=== PATIENT | male | born 1960 | race African-American/Black ===

== ENCOUNTER 2016-10-17 13:28 | Emergency (ER) ==
[2016-10-17] MEDS ORDERED: XYLOCAINE 1% INJ ONE ×2 (13:36→14:27)
[2016-10-17] MEDS ORDERED: DIPHTHERIA/TETANUS ADULT IM ONE (13:36)
[2016-10-17] MEDS ORDERED: ZOFRAN ODT PO ONE (13:36)
[2016-10-17] MEDS ORDERED: NORCO-7.5 PO ONE (13:36)
[2016-10-17] MEDS ORDERED: XYLOCAINE-MPF 1% 10 ML ONE (13:41)
--- NOTE | 2016-10-17 13:44 | PROVIDER DOCUMENTATION ---
HPI-Rash/Wound/ReCheck - General Source: patient - History of Present Illness-Dermatology Location: reports: hands (L) Quality: reports: painful Severity: reports: moderate Onset/Duration: reports: just prior to arrival Timing: reports: still present Context/Associated Symptoms: reports: laceration (L 2nd and 4th digit) Identifiable cause?: Yes (slammed in car door ) Similar Symptoms Previously?: No Recently seen or treated by another doctor?: No <Mindy Oviedo - Last Filed: 10/17/16 14:58> <Vijay Arriaga - Last Filed: 10/17/16 15:19> - General Chief Complaint: Extremity Injury Stated Complaint: HAND LACERATION Time Seen by Provider: 10/17/16 13:36 Allergies/Adverse Reactions: Allergies Allergy/AdvReac Type Severity Reaction Status Date / Time sulfamethoxazole Allergy Mild SWELLING Verified 07/30/16 00:20 [From Bactrim] trimethoprim [From Bactrim] Allergy Mild SWELLING Verified 07/30/16 00:20 Home Medications: Home Medication List Medication Instructions Recorded Confirmed Last Taken Type Gabapentin 300 mg PO TID 09/13/15 01/04/16 07/29/16 History Amlodipine Besylate [Norvasc] 10 mg PO DAILY #30 tablet 01/04/16 Unknown Rx Metformin HCl 1,000 mg PO BID #120 tablet 01/04/16 07/29/16 Rx Albuterol Sulfate [Albuterol 8.5 gm IH Q4-6H PRN PRN #1 04/21/16 Unknown Rx Sulfate Hfa] hfa.aer.ad Furosemide [Lasix] 40 mg PO DAILY #90 tablet 04/21/16 2 Days Ago Rx Amlodipine Besylate [Norvasc] 10 mg PO DAILY #30 tablet 07/30/16 Unknown Rx Doxycycline 100 mg PO BID #14 capsule 07/30/16 Unknown Rx Cephalexin [Keflex] 500 mg PO Q6HR #28 capsule 10/17/16 Unknown Rx Hydrocodone/APAP 7.5 mg/325 mg 1 each PO Q6H PRN PRN #12 tablet 10/17/16 Unknown Rx [[place]-7.5] Ondansetron Odt [Zofran 4 mg Odt] 4 mg PO Q6H PRN PRN #20 tablet 10/17/16 Unknown Rx - History of Present Illness-Dermatology Nature of Presenting Problem: Pt is 55 y/o M presents to the ED with lacerations to L 2nd and 4th digit. Pt states slammed hand in car door. Pt denies LOC and any other injuries. (Mindy Oviedo) Review of Systems - Adult - REVIEW OF SYSTEMS - ADULT Constitutional: denies: chills, fever Eyes: denies: blurred vision, double vision Ears, Nose, Mouth & Throat: denies: ear pain, nose pain, throat pain Cardiovascular: reports: irregular heart rate (tachy). denies: chest pain, heart murmur Respiratory: denies: cough, shortness of breath, wheezing Gastrointestinal: denies: abdominal pain, diarrhea, nausea, vomiting Genitourinary: denies: dysuria, hematuria Musculoskeletal: reports: other (L digit pain). denies: bone pain, joint pain, neck pain Integumentary: denies: hives, itching Neurological: denies: dizziness/vertigo, headache/migraines Psychiatric: reports: no symptoms reported Endocrine: reports: no symptoms reported Hematologic/Lymphatic: reports: no symptoms reported Allergic/Immunologic: reports: no symptoms reported All Other Systems: Reviewed and Negative <Mindy Oviedo - Last Filed: 10/17/16 14:58> Past History - Adult - PAST MEDICAL HISTORY-ADULT Review of Records: reports: Nursing Assessment Review, Medications Reviewed, Social history reviewed & non-contributory. Major Childhood Illnesses: reports: denies history Cardiovascular: reports: HTN Respiratory: reports: denies history Gastrointestinal: reports: denies history Obstetrical/Gynecological: reports: denies history Genitourinary: reports: denies history Musculoskeletal: reports: other (diabetic neuropathy in feet and arms) Neurological: reports: denies history Endocrine/Immune: reports: Diabetes Diabetes Type: Type 2 Other Conditions: reports: denies history - PRIOR SURGERIES/PROCEDURES Surgical/Procedure History: reports: none - PRIOR HOSPITALIZATIONS Prior Hospitalizations: reports: none - IMMUNIZATION STATUS Childhood Immunizations: See Nurse Assessment Flu Vaccine: See Nurse Assessment - FAMILY HISTORY Family History: diabetes, HTN - SOCIAL HISTORY Smoking: cigarettes, less than 1 pack/day Provider spent 3-5 mins advising pt. on dangers of tobacco.: Discussed manners to quit use, and f/u contacts for add'l counseling. Substance Use: denies Living Situation: family <Mindy Oviedo - Last Filed: 10/17/16 14:58> Physical Exam-General - PHYSICAL EXAM-ADULT Initial Vital Signs Reviewed: Yes - CONSTITUTIONAL General Appearance: appears well, alert, mild distress - EYES Eyes: PERRL/EOMI, pink conjunctivae, fundi clear, no AV nicking - HEAD, EARS, NOSE, MOUTH & THROAT HENMT: normocephalic/atraumatic, moist mucous membranes, normal ENT inspection, TMs normal, pharynx normal - NECK Neck: non-tender, full range of motion, supple, normal inspection - RESPIRATORY Respiratory: chest non-tender, lungs clear, normal breath sounds, no pleuratic chest pain, no respiratory distress, no accessory muscle use - CARDIOVASCULAR Cardiovascular: normal peripheral pulses, no edema, no gallop, no JVD, no murmur , tachycardia - GASTROINTESTINAL (ABDOMEN) Abdominal Exam: normal bowel sounds, non tender, soft, no organomegaly, no pulsatile mass - LYMPHATIC Lymphatic: no adenopathy - MUSCULOSKELETAL Back Exam: normal inspection, no CVA tenderness, no vertebral tenderness Extremity: normal range of motion, normal gait, no pedal edema, no calf tenderness, tenderness (L 2nd and 4th digit) - SKIN Integumentary: normal color, normal turgor, warm/dry, laceration(s) (L 2nd and 4th digit) - NEUROLOGIC Neurologic: grossly normal - PSYCHIATRIC Psych/Mental Status: normal mood/affect, oriented x 3 <Mindy Oviedo - Last Filed: 10/17/16 14:58> Progress - XRAY 1 XRAY: Left XRAY Study: Hand Impression: Abnormal XRAY Interpretation: communited fracture 4th finger <Gorge Oviedoi - Last Filed: 10/17/16 14:58> - CONSULTS/PCP/HOSPITALIST Notification #1 *Consult/PCP/Hospitalist*: Dr. Burton's Office Time Discussed: 15:18 Consult Disposition: F/U in office (Will work in to clinic today) <Vijay Arriaga - Last Filed: 10/17/16 15:19> - PLAN OF CARE/RESULTS Progress/Plan/Lab Results: Orders Category Date Time Status Finger Splint DIRECTED Care 10/17/16 15:12 Active Suture Tray Set-Up DIRECTED Care 10/17/16 13:36 Active HAND COMPLETE LEFT [RAD] Stat Exams 10/17/16 13:36 Completed CefAZOLIN [Kefzol] Med 10/17/16 14:05 Discontinued 1 gm IM NOW ONE Diphtheria/Tetanus Adult Med 10/17/16 13:36 Discontinued 0.5 ml IM .ONCE ONE Hydrocodone/APAP 7.5 mg/325 mg [[place]-7.5] Med 10/17/16 13:36 Discontinued 1 each PO NOW ONE Lidocaine 1% Pf [Xylocaine-Mpf 1%] 5 ml Med 10/17/16 13:41 Discontinued .ROUTE As Directed Lidocaine 1% [Xylocaine 1%] Med 10/17/16 13:36 Discontinued 20 ml INJ NOW ONE Lidocaine 1% [Xylocaine 1%] Med 10/17/16 14:27 Discontinued 20 ml INJ NOW ONE Ondansetron Odt [Zofran Odt] Med 10/17/16 13:36 Discontinued 4 mg PO NOW ONE Vital Signs Temp Pulse Resp BP Pulse Ox 10/17/16 13:33 98 F 120 H 20 212/128 100 sulfamethoxazole [From Bactrim] Allergy (Mild, Verified 07/30/16 00:20) SWELLING trimethoprim [From Bactrim] Allergy (Mild, Verified 07/30/16 00:20) SWELLING Gabapentin 300 mg PO TID 09/13/15 Amlodipine Besylate [Norvasc] 10 mg PO DAILY #30 tablet 01/04/16 Metformin HCl 1,000 mg PO BID #120 tablet 01/04/16 Albuterol Sulfate [Albuterol Sulfate Hfa] 8.5 gm IH Q4-6H PRN PRN #1 hfa.aer.ad 04/21/16 Furosemide [Lasix] 40 mg PO DAILY #90 tablet 04/21/16 Amlodipine Besylate [Norvasc] 10 mg PO DAILY #30 tablet 07/30/16 Doxycycline 100 mg PO BID #14 capsule 07/30/16 (Vijay Arriaga) Procedures - LACERATION/WOUND REPAIR/FB Left Hand Wound Location: Other: L 2nd digit Wound Length: 1.5 cm Wound's Depth, Shape: superficial Wound Explored/Foreign Body: clean Irrigated with Saline?: No Prepped with: Betadine Anesthetic: 1%, Lidocaine/Xylocaine Volume of Anesthetic (ml's): 5 Wound Repaired with: Sutures Suture Size/Type: 4.0, Nylon Number of Sutures: 6 Layer Closure?: No Sterile Dressing Applied?: Yes Splint Applied?: No Sling Applied?: No Left See Other Wound Location: Other: L 4th digit Wound Length: 2 cm Wound's Depth, Shape: flap Wound Explored/Foreign Body: clean Irrigated with Saline?: No Prepped with: Betadine Anesthetic: 1%, Lidocaine/Xylocaine Volume of Anesthetic (ml's): 5 Wound Debrided: minimal Wound Repaired with: Sutures Suture Size/Type: 4.0, Nylon Number of Sutures: 9 Layer Closure?: Yes Deep Layer Suture Size/Type: 4.0, Chromic Number Deep Layer Sutures: 2 Sterile Dressing Applied?: Yes Splint Applied?: No Sling Applied?: No <Mindy Oviedo - Last Filed: 10/17/16 14:58> Departure <Mindy Oviedo - Last Filed: 10/17/16 14:58> - Departure Time of Disposition Order: 15:12 Certified Medical Emergency: Emergent <Vijay Arriaga - Last Filed: 10/17/16 15:19> - Departure DIAGNOSIS: Open finger fracture Qualifiers: Encounter type: initial encounter Finger: ring finger Phalanx: middle Fracture alignment: nondisplaced Laterality: left Qualified Code(s): S62.655B - Nondisplaced fracture of medial phalanx of left ring finger, initial encounter for open fracture Disposition: HOME 01 Condition: Good Additional Instructions: Take medication as prescribed. Go to Dr. Burton's office right now. ED Follow Up Instructions: You have been treated by a care provider in the Emergency Department. These instructions are being provided to you so you can have an understanding of how to care for yourself upon discharge. Upon discharge from the Emergency Department, you are responsible for making arrangements for follow-up care by a physician of your choice. Take all prescribed medications as directed. Return to the Emergency Department immediately for any new or worsening symptoms. You may call the Physician Referral phone number at [phone] to obtain a list of Physicians who are taking new patients. Prescriptions: Cephalexin [Keflex] 500 mg PO Q6HR #28 capsule Hydrocodone/APAP 7.5 mg/325 mg [[place]-7.5] 1 each PO Q6H PRN PRN #12 tablet PRN Reason: Pain Ondansetron Odt [Zofran 4 mg Odt] 4 mg PO Q6H PRN PRN #20 tablet PRN Reason: Nausea Referrals: None,PCP [Primary Care Provider] - Nelson Burton MD [STAFF PHYSICIAN] - Attestation - Scribe Verification/Attestation Scribe:: Mindy vOiedo Acting as Scribe for:: Vijay Arriaga Scribe documention review:: This chart was documented by a scribe and accurately reflects the service the provider performed and the decisions made by the provider. <Mindy Oviedo - Last Filed: 10/17/16 14:58> - Physician/ FINN Attestation Patient care was provided by Advanced Practice Provider:: Yes Advanced Practice Provider:: Vijay Arriaga Advanced Practice Provider documentation review:: The Mid-level provider documentation, treatment plan and medical decision making was reviewed by the physician who agrees with all treatment and medical decision making by the [facility]. <Vijay Arriaga - Last Filed: 10/17/16 15:19> Physician Attestation
[2016-10-17] MEDS ORDERED: KEFZOL IM ONE (14:05)
--- NOTE | 2016-10-17 14:23 | Diag Imaging Result Document ---
PROCEDURE NAME: HAND COMPLETE LEFT - 10/17/2016 LEFT HAND, THREE VIEWS: FINDINGS: There is a comminuted fracture to the middle phalanx of the fourth finger. There are several millimeters of displacement and angulation at the fracture site. 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 No other fracture or dislocation. IMPRESSION: Fracture to the mid fourth finger.
[2016-10-17 15:59] VITALS: BP 171/89
== END 2016-10-17 15:59 | disposition home or self-care (01) ==
LOC: P.ED 13:28
DX: S62.655B Nondisplaced fracture of middle phalanx of left ring finger, initial encounter for open fracture (principal); M79.642 Pain in left hand; S61.211A Laceration without foreign body of left index finger without damage to nail, initial encounter; M79.645 Pain in left finger(s); I10 Essential (primary) hypertension; E11.9 Type 2 diabetes mellitus without complications; F17.210 Nicotine dependence, cigarettes, uncomplicated; Z79.899 Other long term (current) drug therapy; Z23 Encounter for immunization; Z71.6 Tobacco abuse counseling; Z83.3 Family history of diabetes mellitus; Z82.49 Family history of ischemic heart disease and other diseases of the circulatory system; W23.0XXA Caught, crushed, jammed, or pinched between moving objects, initial encounter
CPT/HCPCS: 90714; J0690

== ENCOUNTER 2018-11-21 17:32 | Inpatient (IN) ==
--- NOTE | 2018-11-21 18:06 | Diag Imaging Result Doc PS360 ---
EXAM: CHEST-1 VIEW INDICATION: chest pain TECHNIQUE: One view COMPARISON: 11/09/2018 FINDINGS: There is vague increased opacity at the right lung base suggesting a mild infiltrate. The left lung is clear. This is more prominent than the most recent prior study but is similar to a prior study dated 10/27/2018 There is no discrete pleural fluid collection or pneumothorax. The cardiomediastinal silhouette and central vasculature are grossly unremarkable. IMPRESSION: Vague right basilar infiltrate as described. Electronically signed by Donny Gonzales 11/21/2018 6:04 PM
[2018-11-21 18:18] LABS: BE 6.5 mmoll (-3.0-3.0); BLOOD TYPE ARTERIAL; HCO3-(ACT) 29.9 mmoll (20.0-26.0); O2(CT) 13.9 mL/dL (15.0-23.0); O2HB 90.8 % (95.0-99.0); PCO2(98.6) 45 mmHg (35-45); PO2(98.6) 58 mmHg (60-100); SAMPLE BLOOD; SAO2 94.2 % (95.0-100.0); THB 10.9 g/dL (11.5-17.4); pH(98.6) 7.45 (7.35-7.45)
[2018-11-21 18:20] LABS: ALLEN TEST NO; MODALITY ROOM AIR
[2018-11-21 18:31] LABS: BASO# 0.03 X1000 (0.0-0.2); BASO% 0.5 % (0.0-0.8); EOS# 0.22 X1000 (0.0-0.7); EOS% 3.9 % (0.0-10.0); HEMATOCRIT 32.6 % (42.0-52.0); HEMOGLOBIN 10.8 g/dL (14.0-18.0); IMM GRAN# 0.01 X1000 (0.0-0.04); IMM GRAN% 0.2 % (0.0-0.5); LYMPH# 1.59 X1000 (1.2-3.4); LYMPH% 28.3 % (20.5-51.1); MCH 27.8 PG (27-31); MCHC 33.1 g/dL (33-37); MONO# 0.64 X1000 (0.11-0.59); MONO% 11.4 % (1.7-9.3); MPV 11.5 FL (7.4-10.4); NEUT# 3.12 X1000 (1.4-6.5); NEUT% 55.7 % (42.2-75.2); PLT 311 X1000 (130-400); RBC 3.88 XMIL (4.7-6.1); RDW 13.4 % (11.5-14.5); WBC 5.61 X1000 (4.8-10.8)
[2018-11-21 18:44] LABS: PROTIME 13.7 Seconds (11.0-16.0)
[2018-11-21 18:45] LABS: PTT 29.5 Seconds (22.3-41.8)
[2018-11-21 19:12] LABS: ESTIMATED GFR > 60
[2018-11-21 19:18] LABS: AGAP 12; ALBUMIN 3.2 g/dL (3.5-5.0); ALKALINE PHOSPHATASE 157 U/L (32-122); BUN 10 mg/dL (8-22); CALCIUM 8.2 mg/dL (8.8-10.2); CHLORIDE 98 mmol/L (98-107); COSMO 292; CREATININE 1.1 mg/dL (0.7-1.2); GOT 13 U/L (10-34); GPT 32 U/L (10-44); POTASSIUM 4.3 mmol/L (3.5-5.1); SODIUM 138 mmol/L (136-145); TCO2 28 mmol/L (25-35); TOTAL PROTEIN 6.5 g/dL (6.3-8.3)
[2018-11-21 19:20] LABS: GLUCOSE 405 mg/dL (70-104)
--- NOTE | 2018-11-21 19:25 | PROVIDER DOCUMENTATION ---
This chart was entered by Lilia Mazariegos Scribe, acting as scribe for Parviz Acosta MD. HPI-Respiratory General - General Source: patient - History of Present Illness-Resp Severity in ED: reports: moderate Onset/Duration: reports: other (2weeks) Timing: reports: getting worse Context: reports: other (cardiac stent placement 2 weeks ago) Cough Quality/Degree: reports: mild, dry cough Episode Frequency: rare episodes Current Respiratory Medication Therapy: Initiated none Modifying Factors: improves with: exertion (worsens), lying down (worsens) Associated Symptoms: reports: cough, shortness of breath, wheezing. denies: fever/chills Similar Symptoms Previously?: Yes Recently seen or treated by another doctor?: Yes <Parviz Acosta - Last Filed: 11/21/18 19:25> <Jason Alvarez - Last Filed: 11/21/18 20:44> - General Chief Complaint: Shortness of Breath Stated Complaint: TROUBLE BREATHING Time Seen by Provider: 11/21/18 17:42 Allergies/Adverse Reactions: Patient Allergies Allergy/AdvReac Type Severity Reaction Status Date / Time sulfamethoxazole Allergy Mild SWELLING Verified 11/21/18 18:20 [From Bactrim] trimethoprim [From Bactrim] Allergy Mild SWELLING Verified 11/21/18 18:20 Home Medications: Home Medication List Medication Instructions Recorded Confirmed Last Taken Type Metformin [Glucophage] 1,000 mg PO BID 11/08/17 11/21/18 11/21/18 History Furosemide [Lasix] 20 mg PO DAILY #30 tab 11/09/17 11/21/18 11/21/18 Rx Gabapentin [Neurontin] 400 mg PO DAILY 12/13/17 11/21/18 11/21/18 History LISINOpril [Prinivil] 40 mg PO DAILY #90 tab 12/16/17 11/21/18 11/21/18 Rx - History of Present Illness-Resp Nature of Presenting Problem: pt is a 57 yr old male presenting with 2 week hx of worsening shortness of emily ath and lower extremity edema.pt reports stent placement 2 weeks ago. pt admits coughing denies fever/chills (Parviz Acosta) Review of Systems - Adult - REVIEW OF SYSTEMS - ADULT Constitutional: denies: chills, fever Eyes: reports: no symptoms reported Ears, Nose, Mouth & Throat: denies: ear pain, sinus problem, throat pain Cardiovascular: reports: edema. denies: chest pain, palpitations, syncope Respiratory: reports: cough, dyspnea on exertion, shortness of breath, wheezing Gastrointestinal: denies: abdominal pain, diarrhea, nausea, vomiting Genitourinary: reports: no symptoms reported Musculoskeletal: denies: back pain, muscle aches, neck pain Integumentary: reports: no symptoms reported Neurological: denies: dizziness/vertigo, headache/migraines Psychiatric: reports: no symptoms reported Endocrine: reports: no symptoms reported Hematologic/Lymphatic: reports: no symptoms reported Allergic/Immunologic: reports: no symptoms reported All Other Systems: Reviewed and Negative <Parviz Acosta - Last Filed: 11/21/18 19:25> Past History - Adult - PAST MEDICAL HISTORY-ADULT Review of Records: reports: Old Records Reviewed, Nursing Assessment Review, Medications Reviewed, Social history reviewed & non-contributory. Major Childhood Illnesses: reports: denies history Cardiovascular: reports: CAD, HTN Respiratory: reports: asthma Gastrointestinal: reports: denies history Obstetrical/Gynecological: reports: denies history Genitourinary: reports: denies history Musculoskeletal: reports: denies history, other (diabetic neuropathy in feet and arms) Neurological: reports: denies history Endocrine/Immune: reports: Diabetes Other Conditions: reports: denies history - PRIOR SURGERIES/PROCEDURES Surgical/Procedure History: reports: none - PRIOR HOSPITALIZATIONS Prior Hospitalizations: reports: none - IMMUNIZATION STATUS Childhood Immunizations: See Nurse Assessment Flu Vaccine: See Nurse Assessment - FAMILY HISTORY Family History: diabetes, HTN - SOCIAL HISTORY Smoking: quit less than 1 year Substance Use: denies Living Situation: family <Parviz Acosta - Last Filed: 11/21/18 19:25> Physical Exam-General - PHYSICAL EXAM-ADULT Initial Vital Signs Reviewed: Yes - CONSTITUTIONAL General Appearance: alert, no apparent distress - EYES Eyes: PERRL/EOMI - HEAD, EARS, NOSE, MOUTH & THROAT HENMT: normocephalic/atraumatic, moist mucous membranes, normal ENT inspection - NECK Neck: non-tender, full range of motion, supple, normal inspection - RESPIRATORY Respiratory: chest non-tender, lungs clear, normal breath sounds, no pleuratic chest pain, no respiratory distress, no accessory muscle use, increased rate - CARDIOVASCULAR Cardiovascular: normal peripheral pulses, regular rate, rhythm - GASTROINTESTINAL (ABDOMEN) Abdominal Exam: normal bowel sounds, non tender, soft - LYMPHATIC Lymphatic: no adenopathy - MUSCULOSKELETAL Back Exam: normal inspection, no CVA tenderness, no vertebral tenderness Extremity: normal range of motion, non-tender, normal gait, pedal edema (bilateral 3+pitting edema) - SKIN Integumentary: normal color, normal turgor, warm/dry - NEUROLOGIC Neurologic: grossly normal, no motor/sensory deficits - PSYCHIATRIC Psych/Mental Status: normal mood/affect <Parviz Acosta - Last Filed: 11/21/18 19:25> Progress - PLAN OF CARE/RESULTS Result Diagrams: 11/21/18 18:05 11/21/18 18:05 - EKG 1 Time of EKG reading by physician:: 17:42 EKG Read and Signed by:: Parviz Acosta EKG Interpretation (*Must complete 3 of following elements*): Abnormal (possible LAE, marked t wave abnormality consider anterolateral ischemia) Rate: 90 Rhythm: sinus with PACs [place]: normal QRS: other (pacs) AR Interval: normal - XRAY 1 XRAY Study: Chest Impression: Abnormal ( Signed EXAM: CHEST-1 VIEW INDICATION: chest p ain TECHNIQUE: One view COMPARISON: 11/09/2018 FINDINGS: There is vague increased opacity at the right lung base suggesting a mild infiltrate. The left lung is clear. This is more prominent than the most recent prior study but is similar to a prior study dated 10/27/2018 There is no discrete pleural fluid collection or pneumothorax. The cardiomediastinal silhouette and central vasculature are grossly unremarkable. IMPRESSION: Vague right basilar infiltrate as described. Electronically signed by Donny Gonzales 11/21/2018 6:04 PM 11/21/181803 Interpreting Physician: Donny Gonzales MD Dictated Date/Time: 11/21/181801) Comparison with other Films: changes noted (10/27/18) - CHANGE OF SHIFT REPORT (ED Provider) 1 Report Given and Care Transferred to:: Dr Alvarez Time of Transfer: 19:00 Items Pending: Labs, XRAY Results <Parviz Acosta - Last Filed: 11/21/18 19:25> - PLAN OF CARE/RESULTS Result Diagrams: 11/21/18 18:05 11/21/18 18:05 <Jason Alvarez - Last Filed: 11/21/18 20:44> - PLAN OF CARE/RESULTS Progress/Plan/Lab Results: Vital Signs - 8 hr 11/21/18 17:36 11/21/18 18:19 11/21/18 19:55 Temperature 98.5 F 98.6 F Pulse Rate 85 83 87 Respiratory Rate 26 H 24 18 Blood Pressure 163/99 167/122 163/106 O2 Sat by Pulse Oximetry 98 98 98 Laboratory Results - last 24 hr 11/21/18 11/21/18 11/21/18 18:00 18:05 18:05 WBC 5.61 RBC 3.88 L Hgb 10.8 L Hct 32.6 L MCV 84.0 MCH 27.8 MCHC 33.1 RDW Std Deviation 13.4 Plt Count 311 MPV 11.5 H Immature Gran % (Auto) 0.2 Neut % (Auto) 55.7 Lymph % (Auto) 28.3 Bertie % (Auto) 11.4 H Eos % (Auto) 3.9 Baso % (Auto) 0.5 Immature Gran # (Auto) 0.01 Neut # (Auto) 3.12 Lymph # (Auto) 1.59 Bertie # (Auto) 0.64 H Eos # (Auto) 0.22 Baso # (Auto) 0.03 PT INR PTT (Actin FS) Specimen Type ARTERIAL Sample Site L BRACHIAL pH 7.45 pCO2 45 pO2 58 L HCO3 29.9 H Base Excess 6.5 H Oxyhemoglobin 90.8 L ABG O2 Sat (Calculated) 13.9 L ABG O2 Saturation 94.2 L ABG Carboxyhemoglobin 2.50 ABG Methemoglobin 1.0 Jimmy Test NO A-a O2 Difference 35.0 Total Hemoglobin 10.9 L Lactate 1.30 Blood Gas Modality ROOM AIR FiO2 % 21.0 Sodium Potassium Chloride Carbon Dioxide Anion Gap BUN Creatinine Estimated GFR/1.73 m2 BUN/Creatinine Ratio Glucose Calculated Osmolality Calcium Total Bilirubin AST ALT Alkaline Phosphatase Troponin T 0.087 Sol-U-Eqxihecetjs Pept Total Protein Albumin Globulin Albumin/Globulin Ratio Urine Source Urine Color Urine Clarity Urine pH Ur Specific [place] Urine Protein Urine Ketones Urine Blood Urine Nitrite Urine Bilirubin Urine Urobilinogen Urine Microscopic RBC Urine WBC Urine Microscopic WBC Ur Epithelial Cells Urine Crystals Urine Bacteria Urine Casts Urine Yeast Urine Glucose 11/21/18 11/21/18 11/21/18 18:05 18:05 18:05 WBC RBC Hgb Hct MCV MCH MCHC RDW Std Deviation Plt Count MPV Immature Gran % (Auto) Neut % (Auto) Lymph % (Auto) Bertie % (Auto) Eos % (Auto) Baso % (Auto) Immature Gran # (Auto) Neut # (Auto) Lymph # (Auto) Bertie # (Auto) Eos # (Auto) Baso # (Auto) PT 13.7 INR 1.00 PTT (Actin FS) 29.5 Specimen Type Sample Site pH pCO2 pO2 HCO3 Base Excess Oxyhemoglobin ABG O2 Sat (Calculated) ABG O2 Saturation ABG Carboxyhemoglobin ABG Methemoglobin Jimmy Test A-a O2 Difference Total Hemoglobin Lactate Blood Gas Modality FiO2 % Sodium 138 Potassium 4.3 Chloride 98 Carbon Dioxide 28 Anion Gap 12 BUN 10 Creatinine 1.1 Estimated GFR/1.73 m2 > 60 BUN/Creatinine Ratio 9 Glucose 405 H* Calculated Osmolality 292 Calcium 8.2 L Total Bilirubin 0.20 AST 13 ALT 32 Alkaline Phosphatase 157 H Troponin T Gxh-N-Talealbsuvo Pept 4625 H Total Protein 6.5 Albumin 3.2 L Globulin 3.0 Albumin/Globulin Ratio 1.0 Urine Source Urine Color Urine Clarity Urine pH Ur Specific [place] Urine Protein Urine Ketones Urine Blood Urine Nitrite Urine Bilirubin Urine Urobilinogen Urine Microscopic RBC Urine WBC Urine Microscopic WBC Ur Epithelial Cells Urine Crystals Urine Bacteria Urine Casts Urine Yeast Urine Glucose 11/21/18 18:23 WBC RBC Hgb Hct MCV MCH MCHC RDW Std Deviation Plt Count MPV Immature Gran % (Auto) Neut % (Auto) Lymph % (Auto) Bertie % (Auto) Eos % (Auto) Baso % (Auto) Immature Gran # (Auto) Neut # (Auto) Lymph # (Auto) Bertie # (Auto) Eos # (Auto) Baso # (Auto) PT INR PTT (Actin FS) Specimen Type Sample Site pH pCO2 pO2 HCO3 Base Excess Oxyhemoglobin ABG O2 Sat (Calculated) ABG O2 Saturation ABG Carboxyhemoglobin ABG Methemoglobin Jimmy Test A-a O2 Difference Total Hemoglobin Lactate Blood Gas Modality FiO2 % Sodium Potassium Chloride Carbon Dioxide Anion Gap BUN Creatinine Estimated GFR/1.73 m2 BUN/Creatinine Ratio Glucose Calculated Osmolality Calcium Total Bilirubin AST ALT Alkaline Phosphatase Troponin T Nje-Y-Jytfhzfaefz Pept Total Protein Albumin Globulin Albumin/Globulin Ratio Urine Source CLEAN CATCH Urine Color YELLOW Urine Clarity CLEAR Urine pH 7.0 Ur Specific [place] 1.000 Urine Protein 1+(30 mg/dL) A Urine Ketones NEGATIVE Urine Blood NEGATIVE Urine Nitrite NEGATIVE Urine Bilirubin NEGATIVE Urine Urobilinogen NORMAL Urine Microscopic RBC <10 Urine WBC NEGATIVE Urine Microscopic WBC <10 Ur Epithelial Cells <10 Urine Crystals NONE SEEN Urine Bacteria NEGATIVE Urine Casts NONE SEEN Urine Yeast NONE SEEN Urine Glucose 3+(500 mg/dL) A Orders Category Date Time Status Admit - [facility] Routine AdmDCTranf 11/21/18 20:38 Active Activity - Up Ad Alva ORDERED Care 11/21/18 20:38 Active Call Admitting on Arrival AT ADMISSION Care 11/21/18 20:39 Active Nursing- Obtain EKG ONCE Care 11/21/18 17:43 Active Resuscitation Status Routine Care 11/21/18 20:38 Ordered Vital Signs Order ROUTINE Care 11/21/18 20:38 Active Z-Document. for Tele Applied ORDERED Care 11/21/18 20:39 Active Heart Healthy Diet Diet 11/21/18 20:40 Active CHEST-1 VIEW [RAD] Stat Exams 11/21/18 17:43 Completed ABG [RESP] Routine Lab 11/21/18 18:00 Completed CBC WITH ELECTRONIC DIFF [HEME] Stat Lab 11/21/18 18:05 Completed COMPREHENSIVE METABOLIC PANEL [CHEM] Stat Lab 11/21/18 18:05 Completed PRO B-NATRIURETIC PEPTIDE Stat Lab 11/21/18 18:05 Completed PROTIME WITH INR [COAG] Stat Lab 11/21/18 18:05 Completed PTT [COAG] Stat Lab 11/21/18 18:05 Completed TROPONIN T Q8HR Lab 11/21/18 21:00 Uncollected TROPONIN T Q8HR Lab 11/22/18 05:00 Uncollected TROPONIN T Q8HR Lab 11/22/18 13:00 Uncollected TROPONIN T Q8HR Lab 11/22/18 21:00 Uncollected TROPONIN T Stat Lab 11/21/18 18:05 Completed ua [URINALYSIS PL W/POSS RFLX CULT] [URINALYSIS] Stat Lab 11/21/18 18:23 Completed Acetaminophen [Tylenol] Med 11/21/18 20:38 Ordered 650 mg PO Q6H PRN PRN Furosemide [Lasix] Med 11/21/18 20:34 Discontinued 40 mg IV NOW ONE Insulin Human Regular [Humulin R] Med 11/21/18 20:34 Discontinued 10 unit SUBQ NOW ONE Levofloxacin 750 mg/D5w [Levaquin 750 mg/D5w] Med 11/21/18 20:34 Active 750 mg in 150 ml IV NOW Morphine Med 11/21/18 20:38 Ordered 2 mg IV Q2H PRN PRN Ondansetron [Zofran] Med 11/21/18 20:38 Ordered 4 mg IV Q4H PRN PRN Oxygen Device Routine Oth 11/21/18 20:39 Active Telemetry [OM.EQ] Routine Oth 11/21/18 20:38 Active ECHO COMPL W/Contrast Definity Routine Ther 11/22/18 06:00 Ordered EKG [EKG] Stat Ther 11/21/18 17:43 Ordered Transfer/Admit Order [TRANSFER] Routine Transfer 11/21/18 20:41 Ordered Departure <Parviz Acosta - Last Filed: 11/21/18 19:25> - Departure Date of Disposition Decision: 11/21/18 Time of Disposition Decision: 20:43 Certified Medical Emergency: Emergent - Critical Care Note This patient required my direct & personal management of CC.: No <Jason Alvarez - Last Filed: 11/21/18 20:44> - Departure DIAGNOSIS: Pneumonia Qualifiers: Pneumonia type: due to unspecified organism Laterality: unspecified laterality Lung location: unspecified part of lung Qualified Code(s): J18.9 - Pneumonia, unspecified organism CHF (congestive heart failure) Qualifiers: Heart failure type: other Qualified Code(s): I50.9 - Heart failure, unspecified Disposition: ADMITTED INPATIENT 09 Condition: Stable Referrals and Follow-Ups: None,PCP [Primary Care Provider] - Attestation - Physician/ FINN Attestation Patient care was provided by Advanced Practice Provider:: No The physician spent face to face time with patient:: Yes Advanced Practice Provider documentation review:: Supervising physician onsite and consulted in the evaluation and care of this patient. The physician did have a face to face encounter with the patient. <Jason Alvarez - Last Filed: 11/21/18 20:44> This chart was documented by the indicated scribe, (Lilia Mazariegos, Christy) and accurately reflects the services I performed and decisions made by me, Parviz Acosta MD, as attested by the provider's signature.
[2018-11-21 20:11] LABS: BILIRUBIN URINE NEGATIVE (NEGATIVE); BLOOD URINE NEGATIVE (NEGATIVE); CLARITY CLEAR (CLEAR); COLOR YELLOW; KETONE URINE NEGATIVE (NEGATIVE); LEUKOCYTES URINE NEGATIVE (NEGATIVE); NITRITE URINE NEGATIVE (NEGATIVE); PROTEIN URINE 1+(30 mg/dL) mg/dL (NEGATIVE); UROBILINOGEN URINE NORMAL
[2018-11-21 20:13] LABS: URINE SOURCE CLEAN CATCH
[2018-11-21 20:14] LABS: URINE BACTERIA NEGATIVE /HFP; URINE EPITHELIAL CELLS <10 /HPF (<10); URINE RBC <10 /HPF (<10); URINE WBC <10 /HPF (<10); URINE YEAST NONE SEEN /HPF
[2018-11-21 20:15] LABS: URINE CAST NONE SEEN /LPF; URINE CRYSTAL NONE SEEN /HPF
[2018-11-21] MEDS ORDERED: LEVAQUIN 750 MG/D5W 750 MG/150 ML IVPB IV ONE (20:34)
[2018-11-21] MEDS ORDERED: LASIX IV ONE (20:34)
[2018-11-21] MEDS ORDERED: HUMULIN R SUBQ ONE (20:34)
[2018-11-21] MEDS ORDERED: TYLENOL PO PRN (20:38)
[2018-11-21] MEDS ORDERED: MORPHINE IV PRN (20:38)
[2018-11-22] MEDS ORDERED: DUONEB (A & A) INH PRN (06:38)
[2018-11-22] MEDS ORDERED: VANCOMYCIN IV PER PHARMACY MISC SCH (06:45)
[2018-11-22] MEDS: HUMALOG (PARKWAY) SUBQ SCH ×4 (07:00→22:12)
[2018-11-22] MEDS ORDERED: DUONEB (A & A) INH SCH (07:30)
--- NOTE | 2018-11-22 07:47 | Diag Imaging Result Doc PS360 ---
EXAM: CHEST-PORTABLE - 11/22/2018 HISTORY: Pneumonia TECHNIQUE: Portable chest COMPARISON: 11/21/2018 FINDINGS: Heart size is normal. There has been apparent decrease in hazy right basilar infiltrate. There is stable tiny right pleural effusion. There has been apparent decrease in tiny left pleural effusion. There is no pneumothorax identified. IMPRESSION: Apparent decrease in right basilar infiltrate. Tiny right pleural effusion. Electronically signed by Ritchie Foss 11/22/2018 7:44 AM
[2018-11-22] MEDS: LOVENOX SUBQ SCH (07:50)
[2018-11-22] MEDS: LASIX IV SCH ×2 (07:50→17:45)
[2018-11-22 07:58] LABS: BASO# 0.02 X1000 (0.0-0.2); BASO% 0.3 % (0.0-0.8); EOS# 0.22 X1000 (0.0-0.7); EOS% 3.4 % (0.0-10.0); HEMATOCRIT 35.6 % (42.0-52.0); HEMOGLOBIN 11.4 g/dL (14.0-18.0); LYMPH% 31.3 % (20.5-51.1); MCH 27.1 PG (27-31); MCV 84.8 FL (81-99); MONO# 0.71 X1000 (0.11-0.59); MONO% 11.1 % (1.7-9.3); NEUT# 3.44 X1000 (1.4-6.5); NEUT% 53.9 % (42.2-75.2); PLT 332 X1000 (130-400); RDW 13.4 % (11.5-14.5); WBC 6.39 X1000 (4.8-10.8)
[2018-11-22] MEDS ORDERED: VANCOMYCIN 2,000 MG in NS 500 ML IV ONE (08:00)
[2018-11-22 08:30] LABS: AGAP 13; ALBUMIN 3.1 g/dL (3.5-5.0); ALKALINE PHOSPHATASE 151 U/L (32-122); BUN 9 mg/dL (8-22); CALCIUM 8.5 mg/dL (8.8-10.2); CHLORIDE 102 mmol/L (98-107); COSMO 287; ESTIMATED GFR > 60; GLUCOSE 130 mg/dL (70-104); GOT 12 U/L (10-34); GPT 28 U/L (10-44); POTASSIUM 3.4 mmol/L (3.5-5.1); SODIUM 144 mmol/L (136-145); TCO2 29 mmol/L (25-35); TOTAL PROTEIN 7.1 g/dL (6.3-8.3)
[2018-11-22] MEDS ORDERED: PRINIVIL PO SCH (09:00)
[2018-11-22] MEDS ORDERED: ASPIRIN PO SCH (09:00)
[2018-11-22] MEDS: NEURONTIN PO SCH (09:35)
[2018-11-22] MEDS ORDERED: KLOR-CON PO ONE (10:20)
--- NOTE | 2018-11-22 10:55 | EKG Report ---
Test Performed on : 11/22/2018 10:39:59 AM Test Reason : TACHYCARDIA Blood Pressure : / mmHG Vent. Rate : 078 BPM Atrial Rate : 078 BPM P-R Int : 146 ms QRS Dur : 086 ms QT Int : 420 ms P-R-T Axes : 058 006 232 degrees QTc Int : 478 ms Normal sinus rhythm. Possible Left atrial enlargement T wave abnormality, consider inferior ischemia T wave abnormality, consider anterolateral ischemia Prolonged QT Abnormal ECG When compared with ECG of 22-NOV-2018 10:38, (Unconfirmed) premature ventricular complexes. are no longer present QRS axis shifted left Confirmed by Philipp Monroy MD ([id number]) on 11/25/2018 11:11:32 AM
[2018-11-22] MEDS ORDERED: LOPRESSOR PO ONE (11:23)
[2018-11-22] MEDS: ZOSYN 3.375 GM in NS 50 ML IV SCH ×3 (11:46→23:12)
--- NOTE | 2018-11-22 12:12 | HISTORY AND PHYSICAL ---
PRIMARY CARE PHYSICIAN: None. CHIEF COMPLAINT: Shortness of breath. HISTORY OF PRESENT ILLNESS: Mr. Ramon is a 57-year-old male who carries a past medical history of hypertension, diabetes mellitus with diabetic neuropathy in his feet. He recently had a non STEMI and was sent to [facility], and had a drug- eluting stent to unknown coronary on 11/12/2018. He reports since that time he has had some shortness of breath. It has been increasing over the last several days. He has been having to sleep sitting up in the chair. If he walks 25 feet, he will have to stop and rest. Then on Monday, he developed bilateral lower extremity edema, positive cough with sputum production. He states that he has not slowed down on his fluid intake. He drinks 2 to 3 big bottles of water per day plus 1 to 2 cans of soda per day. He does not take any canned foods. He was previously adding extra salt to his food. He has been taking his medications as prescribed since his discharge from [facility]. In the ED, he had a chest x-ray that showed a vague right basilar infiltrate as well as a tiny right pleural effusion. He was initiated on IV antibiotics as well as treatment for his pneumonia. EKG did not show any acute changes as well as elevated proBNP at 4625 for which he received IV Lasix. He was admitted to the medical telemetry floor overnight, and we will check an echocardiogram. Continue IV Lasix b.i.d., and will broaden the spectrum of his antibiotics seeing how he had a recent discharge from the hospital. PAST MEDICAL HISTORY: 1. Hypertension. 2. Diabetes with diabetic neuropathy in the feet. 3. Recent non STEMI on 11/12/2018 with a drug-eluting stent to unknown coronary. PAST SURGICAL HISTORY: Stent on 11/12/2018. FAMILY HISTORY: Reviewed and noncontributory. SOCIAL HISTORY: The patient is . He continues to smoke. No alcohol or illicit drug use. ALLERGIES: Bactrim that causes swelling. HOME MEDICATIONS: 1. Glucophage 1000 mg p.o. b.i.d. 2. Neurontin 400 mg p.o. daily. 3. Lasix 20 mg p.o. daily. 4. Prinivil 40 mg p.o. daily. PHYSICAL EXAMINATION: VITAL SIGNS: Temperature is 97.8 degrees, heart rate 83, respirations 18, blood pressure 142/77, and O2 is 100% on 2 L nasal cannula. GENERAL: Mr. Ramon is a 57-year-old male who is sitting up in the bed eating breakfast in no acute distress. HEENT: Atraumatic, normocephalic. PERRL. NECK: Supple. Trachea midline. CARDIOVASCULAR: S1, S2 appreciated. No murmurs, gallops, or rubs noted. No JVD noted. RESPIRATORY: Lung sounds clear bilaterally. No rales, rhonchi, or wheezes. GASTROINTESTINAL: Soft, nontender, and nondistended. Positive bowel sounds in 4 quadrants. EXTREMITIES: Lower extremities were negative for 1 to 2+ pitting edema. Bilateral pedal pulses are palpable. SKIN: Warm, dry and intact. NEUROLOGIC: No focal deficits noted. DIAGNOSTIC DATA: Initial chest x-ray showed a right basilar infiltrate. Followup chest x-ray apparent decrease in a right basilar infiltrate and tiny right pleural effusion. LABORATORY DATA: White count 5, hemoglobin and hematocrit 10 and 32, and platelet count 311,000. Sodium 138, potassium 4.3, BUN 10, and creatinine 1.1. Initial blood glucose was 405. ProBNP was 4625. ASSESSMENT AND PLAN: 1. New onset congestive heart failure. We will check an echocardiogram and consult Cardiology. Continue his [place] and initiate him on a beta iker, slow-dose aspirin and IV Lasix. 2. Right basilar infiltrate. The patient was recently discharged from [facility]. We will use broad-spectrum antibiotics for hospital-acquired pneumonia. Continue with aggressive pulmonary toilet bronchodilators. Check a sputum culture. 3. Hyperglycemia in the setting of diabetes mellitus type 2. We will continue on sliding scale and pattern blood sugars. Check hemoglobin A1c. 4. Diabetic neuropathy. Aware. 5. Recent non STEMI with a drug-eluting stent to unknown coronary. 6. Further recommendations to follow physician evaluation, laboratory and diagnostic data. Dictated by ISA Jalloh for Marlo Armijo MD cc: MD Maninder Beyer MD [facility]
--- NOTE | 2018-11-22 14:20 | CARDIOLOGY CONSULTATION ---
DATE: 11/22/2018 SUBJECTIVE: A 57-year-old, -[place] gentleman who has a history of hypertension and diabetes. Was in the emergency room with non-ST elevation myocardial infarction and subsequently sent to [facility]. At that time, Drug-eluting stent placement to the left anterior descending artery on 11/12/2018. Patient was discharged from the hospital and comes today with increasing episodes of shortness of breath associated with cough and mucoid to mucopurulent expectoration. Chest x-ray revealed right basilar infiltrate with right effusion. Patient was started with antibiotics. His proBNP was elevated at 4625. The patient also was given Lasix. He does not complain of chest pain. Prior to his STEMI, he had been having chest pain typical of angina at that time. Since discharge, he has also had some upper respiratory tract infection like features. There is no history of hemoptysis. REVIEW OF SYSTEMS: A 14 point review of system was done. GI System: There is no history of nausea, vomiting, or diarrhea. There is no history of hematemesis or melena. Central Nervous System: No focal weakness to suggest a CVA or TIA. System: There is no dysuria or hematuria. PAST MEDICAL HISTORY: 1. Hypertension. 2. Diabetes. 3. Non-ST elevation myocardial infarction. 4. Patient had a cardiac catheterization on 11/12/2018. Left main was normal. Left anterior descending artery mid 95 to 99 percent stenosis. Left circumflex was normal. RCA, mild irregularities. Patient was treated with a drug-eluting stent to the mid left anterior descending artery. LV dysfunction, ejection fraction of 35 to 40 percent. MEDICATIONS: His home medications include Glucophage 1000 b.i.d., Neurontin 400 mg a day. At discharge from [facility], he was on aspirin 81 mg a day, Coreg 12.5 b.i.d., Lipitor 40, lisinopril 20, Plavix 75 mg a day, Protonix 40. PHYSICAL EXAMINATION: Vital Signs: Blood pressure was 140/77. Cardiovascular System: Normal jugular venous pressure. There is no thyromegaly. There is no carotid bruit. First and second heart sounds were heard. There is no S3-S4 gallop. Respiratory System: Normal air entry. There is few scattered wheeze. Abdomen: Soft, nontender. There was no guarding or rigidity. Bowel sounds were heard. Central Nervous System: Alert and was moving all 4 extremities. Examination of extremities revealed no pedal edema. HEENT: Atraumatic, normocephalic. Pupils were equal and reacting to light. DIAGNOSTIC DATA: Chest x-ray revealed right basilar infiltrate and the right pleural effusion. ProBNP was elevated. BUN 10, creatinine 1.1. ASSESSMENT AND PLAN: Mr. Vick Ramon is a 57-year-old, -[place] gentleman with a history of hypertension and diabetes. Had a non-ST elevation myocardial infarction and underwent a drug-eluting stent placement to the mid left anterior descending artery on 11/12/2018. He also had left ventricular dysfunction. He comes in with complaints of increasing shortness of breath. Has right basal pneumonia. First set of cardiac enzymes was negative. RECOMMENDATIONS: 1. From a cardiac standpoint, we will get 2 serial cardiac enzymes. Limited echocardiogram to assess cardiac and valvular function. 2. He had LV dysfunction. Was on Coreg 12.5 b.i.d., Lipitor, and lisinopril. Would recommend to continue the medications. 3. Given his LV dysfunction, he was given Lasix here as well. Would recommend putting him on Lasix 40 mg p.o. with potassium supplements. 4. Patient had a drug-eluting stent placed to the mid left anterior descending artery. Continue with aspirin and Plavix. 5. His electrocardiogram revealed normal sinus rhythm. There were no acute ST-T changes to suggest acute myocardial infarction. However, there were T-wave inversions in the anterior leads. 6. Hyperlipidemia. He is on Lipitor 40. Would recommend continuing the same medications. 7. He has been started on broad-spectrum antibiotics for a right basilar infiltrate. Would recommend continuing medications. Thank you for the consult. We will follow hospital course. cc: Maninder Carr MD
[2018-11-22] MEDS: PLAVIX PO SCH (14:44)
--- NOTE | 2018-11-22 14:45 | EKG Report ---
Test Performed on : 11/22/2018 2:27:43 PM Test Reason : TACHY Blood Pressure : / mmHG Vent. Rate : 071 BPM Atrial Rate : 071 BPM P-R Int : 144 ms QRS Dur : 090 ms QT Int : 414 ms P-R-T Axes : 057 000 213 degrees QTc Int : 449 ms Normal sinus rhythm. Possible Left atrial enlargement ST & Marked T wave abnormality, consider anterolateral ischemia Abnormal ECG When compared with ECG of 22-NOV-2018 10:39, (Unconfirmed) No significant change was found Confirmed by Philipp Monroy MD ([id number]) on 11/25/2018 11:10:44 AM
--- NOTE | 2018-11-22 14:52 | EKG Report ---
Test Performed on : 11/21/2018 5:42:44 PM Test Reason : sob Blood Pressure : / mmHG Vent. Rate : 090 BPM Atrial Rate : 090 BPM P-R Int : 160 ms QRS Dur : 084 ms QT Int : 372 ms P-R-T Axes : 046 -03 206 degrees QTc Int : 455 ms Sinus rhythm. with premature atrial complexes. Possible Left atrial enlargement Marked T wave abnormality, consider anterolateral ischemia Abnormal ECG When compared with ECG of 09-NOV-2018 23:13, (Unconfirmed) premature atrial complexes. are now present Inverted T waves have replaced nonspecific T wave abnormality in Inferior leads Unconfirmed Result
--- NOTE | 2018-11-22 14:59 | PROGRESS NOTE ---
DATE: 11/22/2018 SUBJECTIVE: He came in with shortness of breath and orthopnea, not sure if he has had a cough, but he was just stented about 2 weeks ago, actually less than 2 weeks ago, and was found to have a pneumonia and CHF exacerbation. OBJECTIVE: On exam though, he looks pretty well. Pulmonary: He has got some mild rales at the bases. No rhonchi. LABORATORY DATA: Really unremarkable, but he feels he has new heart failure that was not there previously. IMPRESSION AND PLAN: Cardiology's records show that he did have a diminishment in his EF of 35 to 40. Repeat echo has been ordered. Waiting on that. Cardiology has also seen the patient. We are going to treat pneumonia and heart failure exacerbation and follow closely. This is a face-to- face encounter note with Mile Zafar. cc: Marlo Armijo MD
[2018-11-22] MEDS: VICTOZA SUBQ SCH (15:05)
[2018-11-22 15:07] LABS: MAGNESIUM 1.4 mg/dL (1.5-2.7); POTASSIUM 3.8 mmol/L (3.5-5.1)
[2018-11-22] MEDS: XOPENEX NEB INH SCH ×2 (15:41→22:47)
[2018-11-22] MEDS: GLUCOPHAGE PO SCH (17:44)
[2018-11-22] MEDS ORDERED: LEVAQUIN 750 MG in NS 150 ML IV SCH (20:00)
[2018-11-22] MEDS ORDERED: LOPRESSOR PO SCH (21:00)
[2018-11-22] MEDS: COREG PO SCH (22:12)
[2018-11-22] MEDS: LIPITOR PO SCH (22:12)
[2018-11-23] MEDS ORDERED: VANCOMYCIN 1,550 MG in NS 250 ML IV SCH (03:00)
[2018-11-23] MEDS ORDERED: INSULIN PEN NEEDLES ONE (05:56)
[2018-11-23] MEDS: LASIX IV SCH (06:19)
[2018-11-23] MEDS: LOVENOX SUBQ SCH (06:19)
[2018-11-23] MEDS: ZOSYN 3.375 GM in NS 50 ML IV SCH ×3 (06:19→18:09)
[2018-11-23] MEDS: HUMALOG (PARKWAY) SUBQ SCH ×4 (06:50→22:35)
[2018-11-23 07:39] LABS: BASO# 0.02 X1000 (0.0-0.2); BASO% 0.4 % (0.0-0.8); EOS# 0.22 X1000 (0.0-0.7); EOS% 4.6 % (0.0-10.0); HEMATOCRIT 38.9 % (42.0-52.0); HEMOGLOBIN 12.4 g/dL (14.0-18.0); IMM GRAN# 0.01 X1000 (0.0-0.04); IMM GRAN% 0.2 % (0.0-0.5); LYMPH# 1.43 X1000 (1.2-3.4); LYMPH% 29.9 % (20.5-51.1); MCH 26.8 PG (27-31); MCHC 31.9 g/dL (33-37); MONO# 0.53 X1000 (0.11-0.59); MONO% 11.1 % (1.7-9.3); MPV 10.8 FL (7.4-10.4); NEUT# 2.57 X1000 (1.4-6.5); NEUT% 53.8 % (42.2-75.2); PLT 344 X1000 (130-400); RBC 4.63 XMIL (4.7-6.1); RDW 13.5 % (11.5-14.5); WBC 4.78 X1000 (4.8-10.8)
[2018-11-23 07:41] LABS: HEMOGLOBIN A1C 9.2 % (4.8-6.0)
[2018-11-23 08:04] LABS: CALCIUM 8.6 mg/dL (8.8-10.2); CREATININE 1.3 mg/dL (0.7-1.2); POTASSIUM 3.6 mmol/L (3.5-5.1); TOTAL BILIRUBIN 0.2 mg/dL (0.20-1.00)
[2018-11-23] MEDS: GLUCOPHAGE PO SCH ×2 (08:16→16:24)
[2018-11-23] MEDS: PLAVIX PO SCH (08:16)
[2018-11-23] MEDS: VICTOZA SUBQ SCH (08:16)
[2018-11-23] MEDS: ASPIRIN EC PO SCH (08:16)
[2018-11-23] MEDS: NEURONTIN PO SCH (08:16)
[2018-11-23] MEDS: COREG PO SCH ×2 (08:17→21:42)
[2018-11-23] MEDS ORDERED: PRINIVIL PO SCH (09:00)
[2018-11-23] MEDS: XOPENEX NEB INH SCH ×3 (10:00→21:13)
[2018-11-23] MEDS: ZOFRAN IV PRN (11:25)
--- NOTE | 2018-11-23 16:10 | PROGRESS NOTE ---
DATE: 11/23/2018 SUBJECTIVE: He is lying in bed. He has no major complaints. His breathing is somewhat improved. OBJECTIVE: Blood pressure is 131/90, heart rate of 86, respiratory rate 18, temperature 97.1 degrees, 99% on room air.Cardiovascular: Regular rate and rhythm. Pulmonary: Bilateral breath sounds clear to auscultation. A little bit of rales at bases. Gastrointestinal: Soft, nontender, nondistended. Bowel sounds are positive. DIAGNOSTIC STUDIES: White count 4, hemoglobin 12, hematocrit 38, platelets 344,000. Creatinine has bumped up to 1.3, sugar is down to 176. His kidney function has never been quite this high so I think we are going to back down a little bit on the Lasix. He seems to be breathing better so I am just going to kind of hold the Lasix until tomorrow, and we will see how he does. PROBLEM LIST: 1. Congestive heart failure with mild exacerbation. We will continue treatments. Again, I am going to adjust his Lasix because he has got some renal insufficiency. 2. Right basilar pneumonia with concern over a hospital-acquired or a gram-negative type pneumonia. We will continue empiric antibiotics. I am going to hold the vancomycin because of his renal insufficiency. 3. Type 2 diabetes. He is on metformin and Victoza. We will continue to monitor. 4. Acute kidney injury, very mild, likely related to diuretic. I still do not have his echocardiogram report so I am not sure what we are looking at from that perspective. Anticipate discharge hopefully in the next 1 to 2 days. cc: Marlo Armijo MD
[2018-11-23] MEDS: LIPITOR PO SCH (21:42)
[2018-11-24] MEDS: ZOSYN 3.375 GM in NS 50 ML IV SCH ×7 (00:48→23:47)
[2018-11-24] MEDS: LOVENOX SUBQ SCH (06:35)
[2018-11-24] MEDS: HUMALOG (PARKWAY) SUBQ SCH ×3 (06:38→16:35)
[2018-11-24 07:49] LABS: BASO# 0.04 X1000 (0.0-0.2); BASO% 0.8 % (0.0-0.8); EOS# 0.26 X1000 (0.0-0.7); EOS% 5.4 % (0.0-10.0); HEMOGLOBIN 12.4 g/dL (14.0-18.0); IMM GRAN# 0.02 X1000 (0.0-0.04); IMM GRAN% 0.4 % (0.0-0.5); LYMPH# 1.89 X1000 (1.2-3.4); LYMPH% 39.5 % (20.5-51.1); MCH 27.4 PG (27-31); MCHC 31.8 g/dL (33-37); MCV 86.1 FL (81-99); MONO# 0.67 X1000 (0.11-0.59); MPV 11.3 FL (7.4-10.4); NEUT# 1.91 X1000 (1.4-6.5); NEUT% 39.9 % (42.2-75.2); PLT 354 X1000 (130-400); RBC 4.53 XMIL (4.7-6.1); RDW 13.9 % (11.5-14.5); WBC 4.79 X1000 (4.8-10.8)
[2018-11-24 08:03] LABS: CALCIUM 8.6 mg/dL (8.8-10.2); CREATININE 1.6 mg/dL (0.7-1.2)
[2018-11-24] MEDS: PLAVIX PO SCH (08:23)
[2018-11-24] MEDS: NEURONTIN PO SCH (08:23)
[2018-11-24] MEDS: ASPIRIN EC PO SCH (08:23)
[2018-11-24] MEDS: COREG PO SCH ×2 (08:23→20:53)
[2018-11-24] MEDS: VICTOZA SUBQ SCH (08:30)
[2018-11-24] MEDS: GLUCOPHAGE PO SCH (08:30)
[2018-11-24] MEDS: XOPENEX NEB INH SCH ×3 (10:30→21:52)
[2018-11-24] MEDS ORDERED: NS 1,000 ML IV ONE (14:40)
--- NOTE | 2018-11-24 18:16 | PROGRESS NOTE ---
DATE: 11/24/2018 SUBJECTIVE: He looks well. He is off O2. He is breathing comfortably. OBJECTIVE: Vital Signs: Blood pressure 151/93, heart rate of 77, respiratory rate 18, temperature 98.2, 99% on room air. Cardiovascular: Regular rate and rhythm. Pulmonary: Bilateral breath sounds. Clear to auscultation. GI: Soft, nontender, nondistended. Bowel sounds are positive. LABORATORY DATA: White count 4.7, hemoglobin and hematocrit 12 and 39, platelets 354. Creatinine is up to 1.6 though. Sugar down to 121. PROBLEM LIST: 1. Acute congestive heart failure exacerbation, systolic. I have held his Lasix because of his progressive renal failure. We will continue to follow. 2. Right basilar pneumonia. He is on Levaquin. We will continue to monitor. 3. Type 2 diabetes is fairly well controlled, although we have to hold his metformin. Victoza may be difficult to use in this setting too. 4. Acute kidney injury, likely related to diuretic effect. We will hold his Glen, decrease his Lasix and follow. I am going to give him some gentle hydration. I am also still waiting for his echo, which has not been resulted out, so hopefully that will be soon. We will continue to monitor. Anticipate discharge tomorrow if his kidney function is better. cc: Marlo Armijo MD
[2018-11-24] MEDS: LIPITOR PO SCH (20:53)
[2018-11-24] MEDS: ZOFRAN IV PRN (20:56)
[2018-11-25] MEDS: HUMALOG (PARKWAY) SUBQ SCH ×3 (00:47→10:57)
[2018-11-25 05:17] VITALS: BP 147/88
[2018-11-25] MEDS: LOVENOX SUBQ SCH (06:00)
[2018-11-25] MEDS: ZOSYN 3.375 GM in NS 50 ML IV SCH ×2 (06:00→13:29)
[2018-11-25 08:10] LABS: BASO# 0.04 X1000 (0.0-0.2); BASO% 0.9 % (0.0-0.8); EOS# 0.24 X1000 (0.0-0.7); EOS% 5.2 % (0.0-10.0); HEMATOCRIT 35.4 % (42.0-52.0); HEMOGLOBIN 11.3 g/dL (14.0-18.0); LYMPH# 1.64 X1000 (1.2-3.4); LYMPH% 35.8 % (20.5-51.1); MCH 27.2 PG (27-31); MCHC 31.9 g/dL (33-37); MCV 85.3 FL (81-99); MONO# 0.54 X1000 (0.11-0.59); MONO% 11.8 % (1.7-9.3); MPV 10.9 FL (7.4-10.4); NEUT# 2.12 X1000 (1.4-6.5); NEUT% 46.3 % (42.2-75.2); PLT 303 X1000 (130-400); RBC 4.15 XMIL (4.7-6.1); RDW 13.3 % (11.5-14.5); WBC 4.58 X1000 (4.8-10.8)
[2018-11-25 08:33] LABS: CREATININE 1.5 mg/dL (0.7-1.2); POTASSIUM 3.9 mmol/L (3.5-5.1)
[2018-11-25] MEDS: XOPENEX NEB INH SCH ×2 (09:10→15:10)
[2018-11-25] MEDS: VICTOZA SUBQ SCH (09:56)
[2018-11-25] MEDS: NEURONTIN PO SCH (09:57)
[2018-11-25] MEDS: COREG PO SCH (09:57)
[2018-11-25] MEDS: ASPIRIN EC PO SCH (09:57)
[2018-11-25] MEDS: PLAVIX PO SCH (09:57)
--- NOTE | 2018-11-25 14:58 | DISCHARGE SUMMARY ---
ADMISSION DATE: 11/21/2018 DISCHARGE DATE: DISCHARGE DIAGNOSES: 1. Right basilar pneumonia. 2. Congestive heart failure, likely mild systolic. 3. Recent PCI with stent placement. 4. Type 2 diabetes. 5. Acute kidney injury related to diuresis. HISTORY AND HOSPITAL COURSE: Briefly, this is a 57-year-old male presenting with shortness of breath. He has CHF symptoms. He also had cough. He had a recent stent after a STEMI on November 12 per Cardiology. He was admitted for treatment for possible CHF. He had a right basilar infiltrate. Dr. Carr evaluated the patient I think the following day. A cardiac cath showed LAD stenosis with an LV function of 35 to 40%. He had stent placement. He recommended treatment, Coreg, Lipitor, lisinopril which is what he had before. He was placed on Lasix. He was diuresed. However, he developed some renal insufficiency with a creatinine up to 1.3. He came in with a creatinine of 1.1. His limited echo showed an EF of 45 to 50%, which was stable. A small pericardial effusion. He was monitored, taken off diuretics because of his renal insufficiency. He was breathing comfortably on room air. His repeat chest x-ray showed decreased infiltrate. He had no white count, no fever, and he was felt stable for discharge. His creatinine though was 1.5 at the time of discharge. DISCHARGE MEDICATIONS: Neurontin 400 daily, Lipitor 40, aspirin 81 daily, Augmentin 500 q.12, he was treated with Zosyn while he was in the hospital, Coreg 12.5 b.i.d., Januvia 50 daily, Lasix I am going to leave him at 20 daily just because of his renal insufficiency and start in 48 hours, Plavix 75 daily, and lisinopril was 20 daily, which he will also start in 48 hours. I would recommend follow up basic in 1 week. I will give him lab orders for that. We will continue to follow. DISPOSITION: Pending his clinical status. [facility], Dr. Carr. TIME SPENT: 32 minute discharge. cc: MD Maninder Beyer MD
--- NOTE | 2018-11-26 09:21 | ECHO REPORT ---
ORDER DATE: 11/22/2018 ECHOCARDIOGRAM: Measurements: Septal thickness 1.5. Posterior wall thickness 1.5. Left ventricular internal diameter diastole 4.4. Left ventricular internal diameter in systole 3.2. Aortic root 3.23. Left atrium 3.54. SUMMARY: 1. Adequate quality study. 2. Aortic valve is trileaflet and opens normally on 2-dimensional images. Mitral, tricuspid, and pulmonic valves are without evidence of structural abnormality with trace tricuspid regurgitation. Aortic root is normal size. 3. Normal left ventricular chamber size with moderate concentric left ventricular hypertrophy. Estimated left ventricular ejection fraction approximately 45 to 50 percent without focal wall motion abnormality. Left atrium, right atrium, right ventricle normal size with grossly preserved right ventricular systolic function. 4. Very small posterior pericardial effusion demonstrated. 5. Appearance of inferior vena cava suggests normal central venous pressure. cc: Jh Barreto MD
--- NOTE | 2018-11-27 09:40 | ECHO REPORT ---
ORDER DATE: 11/22/2018 INTERPRETING PHYSICIAN: Maninder Carr MD ECHOCARDIOGRAPHIC MEASUREMENTS: Interventricular septum 1.4 cm. Left ventricular posterior wall 1.7 cm. Diastolic diameter 4.4 cm. Left atrium 3.2 cm. Aorta 2.8 cm. SUMMARY OF THE 2-DIMENSIONAL IMAGING: Aortic valve leaflets are trileaflet. Mitral valve was normal. Tricuspid valve was normal. Pulmonic valve was normal. There is mild mitral regurgitation. Mild tricuspid regurgitation. Peak velocity across the tricuspid valve was less than 2 m/sec. Peak velocity across the aortic valve less than 2 m/sec. There is no aortic stenosis or regurgitation. Normal left ventricular cavity size. Severe concentric left ventricular hypertrophy. Estimated ejection fraction of 45% to 50%. There is apical hypokinesis. There is trace pericardial effusion. There is no evidence of tamponade. There is no obvious intracardiac mass or thrombus seen. cc: Maninder Carr MD
== END 2018-11-25 16:15 | disposition home or self-care (01) | DRG 280 ==
LOC: P.ED 17:32 → P.EDIPHOLD 23:41 → P.MEDSURG 11-22 07:42
PROVIDERS: ATTEND Internal Medicine
CPT/HCPCS: 71010; 71045; 80048; 80053; 81001; 82805; 82948; 83036; 83735; 83880; 84132; 84484; 85025; 85610; 85730; 87070; 87205; 93005; 93010; 93306; 93308; 94640; 94761; 94799; 96365; 96366; 96372; 96375; 96376; 99285; A9270; C8929; J1650; J1815; J1940; J1956; J2405; J2543; J3370; J7030; J7040; J7050; Q9957; XXXXX